=== PATIENT | female | born 1990 | race Caucasian/White ===

== ENCOUNTER 2020-03-16 11:26 | Emergency (ER) | payer OTHER | END 2020-03-16 11:52 | disposition home or self-care (01) | LOC: JVIRT 11:26 | DX: Z11.59 Encounter for screening for other viral diseases (principal) | CPT/HCPCS: 36415; 86769; G2012-GT; Q3014-GT ==

== ENCOUNTER 2020-04-04 12:23 | Emergency (ER) | payer OTHER | END 2020-04-04 13:57 | disposition home or self-care (01) | LOC: JVIRT 12:23 | DX: Z03.818 Encounter for observation for suspected exposure to other biological agents ruled out (principal) | CPT/HCPCS: C9803; G2012-GT; Q3014-GT; U0003 ==